=== PATIENT | male | born 1970 | race Caucasian/White ===

== ENCOUNTER 2019-12-12 15:44 | Emergency (ER) | payer BC ==
[~2019-12-12 15:44] MED LIST: NOCURR
[2019-12-12] MEDS ORDERED: AMLO2.5T4 PO (15:57)
[2019-12-12] MEDS ORDERED: LISI-660 PO (15:57)
[2019-12-12 18:33] VITALS: BP 145/72
== END 2019-12-12 18:34 | disposition home or self-care (01) ==
LOC: EMS 15:44
DX: R05 Cough (principal); R19.7 Diarrhea, unspecified; R07.89 Other chest pain; I10 Essential (primary) hypertension; F12.90 Cannabis use, unspecified, uncomplicated; Z79.899 Other long term (current) drug therapy; Z77.22 Contact with and (suspected) exposure to environmental tobacco smoke (acute) (chronic)